=== PATIENT | female | born 1990 | race Caucasian/White ===

== ENCOUNTER 2018-12-23 17:00 | Emergency (ER) | payer OTHER ==
[~2018-12-23] VITALS: Ht 160 cm; Wt 67.0 kg
[~2018-12-23 17:00] MED LIST: PREN1TAB31
[2018-12-23 17:29] VITALS: BP 136/82; PULSE 83; RESP 18; Ht 160 cm; Wt 67.0 kg
--- NOTE | 2018-12-23 19:25 | ERD ---
ER Documentation Chief Complaint Chief Complaint dizziness and states has been feeling very faint HPI 27-year-old female otherwise healthy presents to the emergency room complaining of dizziness and multiple episodes of near syncope. The patient has had 1 episode of syncope 3-4 days ago where she had a prodrome of lightheadedness and fell to the ground without head trauma. The patient had no seizure activity and she was aware of her surroundings immediately after. Patient does report a history of anemia but no heavy vaginal bleeding. The patient has 2 children at home and works at nights and has been working very hard with decreased p.o. intake and water intake. She denies any prodrome of chest pain shortness of breath headache. No fevers or chills. ROS All systems reviewed and are negative except as per history of present illness. Medications Home Meds Reported Medications Vits #90-Iron Fum-FA ( Formula) 1 Each Tablet 08/08/13 Allergies Allergies: Coded Allergies: No Known Allergy (Unverified , 08/08/13) PMhx/Soc Medical and Surgical Hx: pt denies Medical Hx, pt denies Surgical Hx History of Surgery: Yes (CIRCLAGE) Anesthesia Reaction: No Hx Neurological Disorder: No Hx Respiratory Disorders: No Hx Cardiac Disorders: No Hx Psychiatric Problems: No Hx Miscellaneous Medical Probl: No Hx Alcohol Use: No Hx Substance Use: No Hx Tobacco Use: No Smoking Status: Never smoker FmHx Family History: No diabetes Physical Exam Vitals Vital Signs Date Temp Pulse Resp B/P (MAP) Pulse Ox O2 O2 Flow FiO2 Time Delivery Rate 12/23/18 98.8 83 18 136/82 100 17:29 (100) Physical Exam General: Well developed, well nourished, no acute distress Head: Normocephalic, atraumatic. Eyes: Pupils equally reactive, EOM intact ENT: Moist mucous membranes Neck: Supple, no lymphadenopathy Respiratory: Lungs clear bilaterally, no distress Cardiovascular: RRR, no murmurs, rubs, or gallops Abdominal: Soft, non-tender, non-distended, no peritoneal signs : Deferred MSK: No edema, no unilateral swelling, 5/5 strength Neurologic: Alert and oriented, moving all extremities, normal speech, no focal weakness, no cerebellar signs Skin: No rash Psych: Normal mood Result Diagram: 3/16/19 1901 3/16/19 1901 Results 24 hrs Laboratory Tests Test 12/23/18 19:01 12/23/18 19:11 White Blood Count 9.0 10^3/ul Red Blood Count 5.16 10^6/ul Hemoglobin 12.9 g/dl Hematocrit 41.2 % Mean Corpuscular Volume 79.8 fl Mean Corpuscular Hemoglobin 25.0 pg Mean Corpuscular Hemoglobin Concent 31.3 g/dl Red Cell Distribution Width 14.3 % Platelet Count 202 10^3/UL Mean Platelet Volume 11.7 fl Immature Granulocytes % 0.300 % Neutrophils % 49.7 % Lymphocytes % 37.8 % Monocytes % 9.3 % Eosinophils % 2.3 % Basophils % 0.6 % Nucleated Red Blood Cells % 0.0 /100WBC Immature Granulocytes # 0.030 10^3/ul Neutrophils # 4.5 10^3/ul Lymphocytes # 3.4 10^3/ul Monocytes # 0.8 10^3/ul Eosinophils # 0.2 10^3/ul Basophils # 0.1 10^3/ul Nucleated Red Blood Cells # 0.0 10^3/ul Sodium Level 142 mmol/L Potassium Level 4.0 mmol/L Chloride Level 108 mmol/L Carbon Dioxide Level 25 mmol/L Anion Gap 9 Blood Urea Nitrogen 16 mg/dl Creatinine 0.63 mg/dl Est Glomerular Filtrat Rate mL/min > 60 mL/min Glucose Level 98 mg/dl Calcium Level 9.5 mg/dl POC Beta HCG, Qualitative NEGATIVE Procedures/MDM EKG, MONITORS, & DIAGNOSTIC IMAGING: EKG: I reviewed and interpreted a 12-lead EKG. Rhythm: Normal sinus rhythm, normal QRS and QTc, no Brugada ST Changes: No contiguous ST segment elevations T waves: No contiguous T wave inversions Impression: No evidence of acute cardiac ischemia LAB INTERPRETATION: I reviewed the laboratory testing and it shows no evidence of acute process MEDICAL DECISION MAKING: Patient presents with signs and symptoms consistent with syncope likely vasovagal. Patient has been working very hard with 2 children at home, this is the likely etiology with decreased oral intake and water intake. The patient does not have any prodrome of chest pain shortness of breath or headache to suggest more serious etiology such as arrhythmia, ACS, pulmonary embolism, dissection, subarachnoid hemorrhage. I do not believe that advanced imaging is necessary. Patient will benefit from EKG and basic blood work and test to rule out more obvious causes. The patient was advised that she needs to follow-up with her primary care physician for further follow-up if the symptoms persist. ER COURSE: * Laboratory testing and diagnostic imaging is unrevealing. The patient remains well-appearing and he will dynamically stable. CONSULTATION: None DISPOSITION PLAN: The patient does not have an identifiable emergent medical condition that warrants inpatient hospitalization at this time. The patient is deemed safe for discharge with outpatient follow-up. We discussed follow up with the patient's primary care doctor within 24 to 48 hours as needed. We also discussed return to the emergency room for worsening symptoms or worsening condition. Outpatient referral: None required Discharge Medications: None required Departure Diagnosis: Primary Impression: Vasovagal syncope Condition: Stable BRITT MARTIN MD Dec 23, 2018 19:25
== END 2018-12-23 20:30 | disposition home or self-care (01) ==
LOC: E/R 17:00
DX: R55 Syncope and collapse (principal)
CPT/HCPCS: 36415; 80048; 81025; 85025; 93005; Z7502